=== PATIENT | female | born 1930 | race Caucasian/White ===

== ENCOUNTER 2018-04-25 19:48 | Inpatient (IN) ==
[2018-04-25] MEDS ORDERED: SODIUM CHLORIDE 0.9% 500 ML IV STA (20:19)
[2018-04-25] MEDS ORDERED: ONDANSETRON 4 MG/2 ML VIAL IV STA (20:19)
[2018-04-25] MEDS ORDERED: MORPHINE 4 MG/1 ML VIAL IV STA (20:19)
[2018-04-25 20:32] LABS: Basophils % 0.2 % (0.0-0.8); Eosinophils % 0.2 % (0.00-10.9); Hematocrit 40.3 VOL% (35.7-47.0); Immature Granulocytes % 0.6 %; Immature Granulocytes Absolute 0.08 #; Lymphocytes # 1.1 10*3/uL (1.4-4.0); Lymphocytes % 8.8 % (21.3-54.2); Mean Corpuscular HGB Conc 32.3 GM/DL (32-36); Mean Corpuscular Hemoglobin 30 PG (27-34); Mean Corpuscular Volume 92.6 FL (87-102); Mean Platelet Volume 11.1 FL (9.6-12.0); Monocytes # 0.7 10*3/uL (0.11-0.8); Monocytes % 5.4 % (1.7-12.7); Neutrophils # 10.7 10*3/uL (1.4-7.4); Neutrophils % 84.8 % (38.7-73.9); Platelet Count 155 T/CUMM (130-400); Red Blood Count 4.35 MC/CUMM (3.8-5.5); Red Cell Distribution Width 12.3 % (9.3-17.3); White Blood Count 12.6 T/CUMM (4-12)
[2018-04-25 20:51] LABS: Alanine Aminotransferase 9 U/L (13-56); Albumin 3.6 G/DL (3.4-5.0); Alkaline Phosphatase 89 U/L (45-117); Aspartate Amino Transferase 18 U/L (0-37); Bilirubin,Total < 0.39 MG/DL (0.2-1.0); Blood Urea Nitrogen 20 MG/DL (7-18); Calcium 9.2 MG/DL (8.5-10.1); Glucose 153 MG/DL (74-106); Osmolality,Calculated 286.3 MOS/KG (273-304); Potassium 3.8 MMOL/L (3.5-5.1); Sodium 141 MMOL/L (136-145); Total Protein 7.1 G/DL (6.4-8.3)
[2018-04-25 20:56] LABS: PT Patient Result 10.5 SECS
[2018-04-25 21:24] LABS: Apearance,Urine Slightly Hazy (Clear); Bacteria,Urine Many /HPF (Few); Bilirubin,Urine Negative (Negative); Blood, Urine Moderate mg/dL (Negative); Glucose,Urine (UA) Negative (Negative); Hyaline Casts,Urine 1 /LPF (0-3); Ketones,Urine 5 mg/dL (Negative); Mucus,Urine Occasional /LPF (Occasional); Nitrite,Urine Positive (Negative); Protein,Urine Negative; RBC,Urine 4 /HPF (0-4); Urine Color Yellow (Yellow); Urine Specific Gravity 1.016 (1.001-1.035); Urine Urobilinogen < 2.0 EU/DL (0.2-1.0); WBC,Urine 92 /HPF (0-6)
[2018-04-25] MEDS ORDERED: LEVOFLOXACIN INJ 500 MG in PREMIX 1 EACH IV STA (21:25)
[2018-04-25] MEDS ORDERED: hydrALAZINE 20 MG/1 ML VIAL ONE (23:59)
[2018-04-26] MEDS ORDERED: hydrALAZINE 20 MG/1 ML VIAL IV ONE (00:04)
[2018-04-26] MEDS ORDERED: hydrALAZINE 20 MG/1 ML VIAL IV PRN (00:54)
[2018-04-26] MEDS ORDERED: MORPHINE 4 MG/1 ML VIAL IV PRN (00:54)
[2018-04-26] MEDS ORDERED: ONDANSETRON 4 MG/2 ML VIAL IV PRN (00:54)
[2018-04-26] MEDS: SODIUM CHLORIDE 0.9% 1,000 ML IV SCH ×3 (01:20→21:42)
[2018-04-26 01:31] LABS: Basophils % 0.2 % (0.0-0.8); Eosinophils % 0.1 % (0.00-10.9); Hemoglobin 12.8 GM/DL (12.0-16.0); Immature Granulocytes % 0.5 %; Immature Granulocytes Absolute 0.08 #; Lymphocytes # 1.3 10*3/uL (1.4-4.0); Lymphocytes % 8.4 % (21.3-54.2); Mean Corpuscular HGB Conc 32.8 GM/DL (32-36); Mean Corpuscular Hemoglobin 30 PG (27-34); Mean Corpuscular Volume 91.5 FL (87-102); Mean Platelet Volume 11.1 FL (9.6-12.0); Monocytes # 0.7 10*3/uL (0.11-0.8); Monocytes % 4.3 % (1.7-12.7); Neutrophils # 13.8 10*3/uL (1.4-7.4); Neutrophils % 86.5 % (38.7-73.9); Platelet Count 151 T/CUMM (130-400); Red Blood Count 4.26 MC/CUMM (3.8-5.5); Red Cell Distribution Width 12.4 % (9.3-17.3); White Blood Count 15.9 T/CUMM (4-12)
[2018-04-26 01:38] LABS: PT Patient Result 10.7 SECS
[2018-04-26 02:01] LABS: Albumin 3.4 G/DL (3.4-5.0); Bilirubin,Total 0.5 MG/DL (0.2-1.0); Calcium 8.6 MG/DL (8.5-10.1); Osmolality,Calculated 284.7 MOS/KG (273-304); Total Protein 6.8 G/DL (6.4-8.3)
[2018-04-26] MEDS ORDERED: VANCOMYCIN INJ 1,000 MG in SODIUM CHLORIDE 0.9% 250 ML IV ONE (06:38)
[2018-04-26] MEDS ORDERED: DEXTROSE 50% 25 GM/50 ML VIAL IV PRN (06:39)
[2018-04-26] MEDS ORDERED: GLUCAGON 1 MG VIAL IM PRN (06:39)
[2018-04-26] MEDS ORDERED: INSULIN REGULAR 100 UNIT/ML SUBCUT SCH (07:30)
[2018-04-26] MEDS: INSULIN LISPRO 100 UNIT/ML SUBCUT SCH ×4 (08:17→21:46)
[2018-04-26] MEDS ORDERED: ENOXAPARIN 40 MG/0.4 ML SYRINGE SUBCUT SCH (09:00)
[2018-04-26] MEDS ORDERED: ceFAZolin 1,000 MG in SYRINGE 1 EACH IV ONE (10:30)
[2018-04-26] MEDS ORDERED: TRANEXAMIC ACID 1,000 MG/10 ML VIAL ONE (11:19)
[2018-04-26] MEDS ORDERED: BACITRACIN OINT 0.9 GM PACK TOP ONE (11:19)
[2018-04-26] MEDS ORDERED: PROPOFOL 200 MG/20 ML VIAL IV ONE (13:58)
[2018-04-26] MEDS ORDERED: SEVOFLURANE 1 UNIT/15 MINUTE INH ONE (13:58)
[2018-04-26] MEDS ORDERED: fentaNYL 100 MCG/2 ML VIAL ONE (13:58)
[2018-04-26] MEDS ORDERED: KETAMINE 500 MG/10 ML VIAL ONE (13:59)
[2018-04-26] MEDS ORDERED: ONDANSETRON 4 MG/2 ML VIAL ONE (13:59)
[2018-04-26] MEDS ORDERED: ROCURONIUM 100 MG/10 ML VIAL IV ONE (13:59)
[2018-04-26] MEDS ORDERED: PHENYLEPHRINE 1 MG/10 ML SYRINGE IV ONE (13:59)
[2018-04-26] MEDS ORDERED: GLYCOPYRROLATE 0.4 MG/2 ML VIAL ONE (13:59)
[2018-04-26] MEDS ORDERED: ETOMIDATE 40 MG/20 ML VIAL IV ONE (13:59)
[2018-04-26] MEDS ORDERED: NEOSTIGMINE 10 MG/10 ML VIAL ONE (13:59)
[2018-04-26] MEDS ORDERED: KETOROLAC 15 MG/1 ML VIAL ONE (14:14)
[2018-04-26] MEDS: KETOROLAC 15 MG/1 ML VIAL IV SCH ×2 (14:15→21:44)
[2018-04-26] MEDS: QUEtiapine 25 MG TABLET PO SCH ×2 (16:07→21:43)
[2018-04-26] MEDS: CARBIDOPA/LEVODOPA 25-100 MG TABLET PO SCH ×2 (16:07→21:44)
[2018-04-26] MEDS: ACETAMINOPHEN 500 MG TABLET PO SCH (18:21)
[2018-04-26] MEDS: DOCUSATE SODIUM 100 MG CAPSULE PO SCH (21:42)
[2018-04-26] MEDS: GABAPENTIN 100 MG CAPSULE PO SCH (21:43)
[2018-04-26] MEDS: TEMAZEPAM 7.5 MG CAPSULE PO SCH (21:43)
[2018-04-26] MEDS: MEMANTINE 10 MG TABLET PO SCH (21:43)
[2018-04-26] MEDS: DONEPEZIL 10 MG TABLET PO SCH (21:43)
[2018-04-27] MEDS: ACETAMINOPHEN 500 MG TABLET PO SCH ×3 (00:46→12:55)
[2018-04-27] MEDS: KETOROLAC 15 MG/1 ML VIAL IV SCH (03:29)
[2018-04-27 04:50] LABS: Basophils # 0.1 10*3/uL (0.0-0.2); Basophils % 0.4 % (0.0-0.8); Eosinophils # 0.2 10*3/uL (0.0-0.87); Eosinophils % 1.6 % (0.00-10.9); Hematocrit 33.9 VOL% (35.7-47.0); Immature Granulocytes % 0.6 %; Immature Granulocytes Absolute 0.07 #; Lymphocytes % 9.3 % (21.3-54.2); Mean Corpuscular HGB Conc 32.4 GM/DL (32-36); Mean Corpuscular Hemoglobin 31 PG (27-34); Mean Corpuscular Volume 94.4 FL (87-102); Mean Platelet Volume 11.6 FL (9.6-12.0); Monocytes # 0.9 10*3/uL (0.11-0.8); Monocytes % 7.6 % (1.7-12.7); Neutrophils % 80.5 % (38.7-73.9); Platelet Count 120 T/CUMM (130-400); Red Blood Count 3.59 MC/CUMM (3.8-5.5); Red Cell Distribution Width 12.8 % (9.3-17.3); White Blood Count 11.1 T/CUMM (4-12)
[2018-04-27 05:08] LABS: Calcium 7.5 MG/DL (8.5-10.1); Osmolality,Calculated 283.4 MOS/KG (273-304); Potassium 4.1 MMOL/L (3.5-5.1)
[2018-04-27] MEDS: LEVOTHYROXINE 75 MCG TABLET PO SCH (06:55)
[2018-04-27] MEDS: INSULIN LISPRO 100 UNIT/ML SUBCUT SCH ×4 (07:50→21:30)
[2018-04-27] MEDS: INSULIN NPH/REGULAR 70/30 100 UNIT/ML SUBCUT SCH (07:51)
[2018-04-27] MEDS: QUEtiapine 25 MG TABLET PO SCH ×3 (08:50→21:23)
[2018-04-27] MEDS: MEMANTINE 10 MG TABLET PO SCH ×2 (08:53→21:23)
[2018-04-27] MEDS: DOCUSATE SODIUM 100 MG CAPSULE PO SCH ×2 (08:53→21:23)
[2018-04-27] MEDS: CARBIDOPA/LEVODOPA 25-100 MG TABLET PO SCH ×3 (08:53→21:23)
[2018-04-27] MEDS: glipiZIDE 5 MG TABLET PO SCH (08:53)
[2018-04-27] MEDS: DONEPEZIL 10 MG TABLET PO SCH ×2 (08:54→21:23)
[2018-04-27] MEDS: FONDAPARINUX 2.5 MG/0.5 ML SYRINGE SUBCUT SCH (08:56)
[2018-04-27] MEDS ORDERED: LISINOPRIL 10 MG TABLET PO SCH (09:00)
[2018-04-27] MEDS: LORATADINE 10 MG TABLET PO SCH (09:43)
[2018-04-27] MEDS: GABAPENTIN 100 MG CAPSULE PO SCH (21:23)
[2018-04-27] MEDS: TEMAZEPAM 7.5 MG CAPSULE PO SCH (21:23)
[2018-04-27] MEDS: SODIUM CHLORIDE 0.9% 1,000 ML IV SCH (21:46)
[2018-04-28 05:19] LABS: Basophils % 0.3 % (0.0-0.8); Eosinophils # 0.2 10*3/uL (0.0-0.87); Eosinophils % 1.8 % (0.00-10.9); Hemoglobin 10.2 GM/DL (12.0-16.0); Immature Granulocytes % 0.3 %; Immature Granulocytes Absolute 0.03 #; Lymphocytes # 1.3 10*3/uL (1.4-4.0); Lymphocytes % 11.9 % (21.3-54.2); Mean Corpuscular HGB Conc 30.9 GM/DL (32-36); Mean Corpuscular Hemoglobin 30 PG (27-34); Mean Corpuscular Volume 95.4 FL (87-102); Mean Platelet Volume 11.4 FL (9.6-12.0); Monocytes # 0.7 10*3/uL (0.11-0.8); Monocytes % 6.2 % (1.7-12.7); Neutrophils # 8.9 10*3/uL (1.4-7.4); Neutrophils % 79.5 % (38.7-73.9); Platelet Count 102 T/CUMM (130-400); Red Blood Count 3.46 MC/CUMM (3.8-5.5); Red Cell Distribution Width 12.7 % (9.3-17.3); White Blood Count 11.2 T/CUMM (4-12)
[2018-04-28 05:48] LABS: Calcium 7.8 MG/DL (8.5-10.1)
[2018-04-28] MEDS: LEVOTHYROXINE 75 MCG TABLET PO SCH (06:10)
[2018-04-28] MEDS: INSULIN NPH/REGULAR 70/30 100 UNIT/ML SUBCUT SCH (07:49)
[2018-04-28] MEDS: INSULIN LISPRO 100 UNIT/ML SUBCUT SCH ×4 (07:49→20:48)
[2018-04-28] MEDS: FONDAPARINUX 2.5 MG/0.5 ML SYRINGE SUBCUT SCH (09:22)
[2018-04-28] MEDS: glipiZIDE 5 MG TABLET PO SCH (09:22)
[2018-04-28] MEDS: CARBIDOPA/LEVODOPA 25-100 MG TABLET PO SCH ×3 (09:23→20:46)
[2018-04-28] MEDS: DOCUSATE SODIUM 100 MG CAPSULE PO SCH ×2 (09:23→20:46)
[2018-04-28] MEDS: MEMANTINE 10 MG TABLET PO SCH ×2 (09:23→20:47)
[2018-04-28] MEDS: DONEPEZIL 10 MG TABLET PO SCH ×2 (09:23→20:47)
[2018-04-28] MEDS: QUEtiapine 25 MG TABLET PO SCH ×3 (09:23→20:46)
[2018-04-28] MEDS: LORATADINE 10 MG TABLET PO SCH (09:24)
[2018-04-28] MEDS: hydrALAZINE 10 MG TABLET PO SCH ×2 (11:22→20:46)
[2018-04-28] MEDS: GABAPENTIN 100 MG CAPSULE PO SCH (20:46)
[2018-04-28] MEDS: TEMAZEPAM 7.5 MG CAPSULE PO SCH (20:47)
[2018-04-28] MEDS: cefTRIAXone 1,000 MG in SYRINGE 1 EACH IV SCH (22:13)
[2018-04-29 06:02] LABS: Basophils % 0.2 % (0.0-0.8); Eosinophils # 0.2 10*3/uL (0.0-0.87); Eosinophils % 2.3 % (0.00-10.9); Hematocrit 32.1 VOL% (35.7-47.0); Hemoglobin 10.3 GM/DL (12.0-16.0); Immature Granulocytes % 0.5 %; Immature Granulocytes Absolute 0.04 #; Lymphocytes # 1.5 10*3/uL (1.4-4.0); Mean Corpuscular HGB Conc 32.1 GM/DL (32-36); Mean Corpuscular Hemoglobin 30 PG (27-34); Mean Corpuscular Volume 94.1 FL (87-102); Mean Platelet Volume 11.9 FL (9.6-12.0); Monocytes # 0.7 10*3/uL (0.11-0.8); Monocytes % 7.8 % (1.7-12.7); Neutrophils # 6.4 10*3/uL (1.4-7.4); Neutrophils % 72.2 % (38.7-73.9); Platelet Count 117 T/CUMM (130-400); Red Blood Count 3.41 MC/CUMM (3.8-5.5); Red Cell Distribution Width 12.6 % (9.3-17.3); White Blood Count 8.8 T/CUMM (4-12)
[2018-04-29 06:25] LABS: Alanine Aminotransferase < 6 U/L (13-56); Albumin 2.3 G/DL (3.4-5.0); Alkaline Phosphatase 89 U/L (45-117); Aspartate Amino Transferase 18 U/L (0-37); Blood Urea Nitrogen 18 MG/DL (7-18); Calcium 8.2 MG/DL (8.5-10.1); Glucose 110 MG/DL (74-106); Osmolality,Calculated 275.8 MOS/KG (273-304); Potassium 3.9 MMOL/L (3.5-5.1); Sodium 137 MMOL/L (136-145); Total Protein 5.7 G/DL (6.4-8.3)
[2018-04-29] MEDS: LEVOTHYROXINE 75 MCG TABLET PO SCH (06:47)
[2018-04-29] MEDS: INSULIN NPH/REGULAR 70/30 100 UNIT/ML SUBCUT SCH (08:04)
[2018-04-29] MEDS: INSULIN LISPRO 100 UNIT/ML SUBCUT SCH ×4 (08:04→21:17)
[2018-04-29] MEDS: FONDAPARINUX 2.5 MG/0.5 ML SYRINGE SUBCUT SCH (08:05)
[2018-04-29] MEDS: hydrALAZINE 10 MG TABLET PO SCH ×2 (08:44→21:19)
[2018-04-29] MEDS: MEMANTINE 10 MG TABLET PO SCH ×2 (08:44→21:19)
[2018-04-29] MEDS: QUEtiapine 25 MG TABLET PO SCH ×3 (08:44→21:19)
[2018-04-29] MEDS: glipiZIDE 5 MG TABLET PO SCH (08:44)
[2018-04-29] MEDS: LORATADINE 10 MG TABLET PO SCH (08:44)
[2018-04-29] MEDS: DONEPEZIL 10 MG TABLET PO SCH ×2 (08:44→21:19)
[2018-04-29] MEDS: DOCUSATE SODIUM 100 MG CAPSULE PO SCH ×2 (08:44→21:20)
[2018-04-29] MEDS: CARBIDOPA/LEVODOPA 25-100 MG TABLET PO SCH ×3 (08:44→21:20)
[2018-04-29] MEDS: cefTRIAXone 1,000 MG in SYRINGE 1 EACH IV SCH (21:18)
[2018-04-29] MEDS: GABAPENTIN 100 MG CAPSULE PO SCH (21:20)
[2018-04-29] MEDS: MAGNESIUM HYDROXIDE SUSP 30 ML UDCUP PO PRN (21:22)
[2018-04-29] MEDS: TEMAZEPAM 7.5 MG CAPSULE PO SCH (22:09)
[2018-04-30 05:57] LABS: Alanine Aminotransferase < 9 U/L (13-56); Albumin 2.2 G/DL (3.4-5.0); Alkaline Phosphatase 84 U/L (45-117); Aspartate Amino Transferase 12 U/L (0-37); Blood Urea Nitrogen 20 MG/DL (7-18); Calcium 8.4 MG/DL (8.5-10.1); Glucose 161 MG/DL (74-106); Osmolality,Calculated 284.4 MOS/KG (273-304); Potassium 4.2 MMOL/L (3.5-5.1); Sodium 140 MMOL/L (136-145); Total Protein 5.6 G/DL (6.4-8.3)
[2018-04-30] MEDS: LEVOTHYROXINE 75 MCG TABLET PO SCH (06:48)
[2018-04-30] MEDS: LORATADINE 10 MG TABLET PO SCH (08:41)
[2018-04-30] MEDS: DONEPEZIL 10 MG TABLET PO SCH ×2 (08:41→21:32)
[2018-04-30] MEDS: QUEtiapine 25 MG TABLET PO SCH ×3 (08:41→21:33)
[2018-04-30] MEDS: glipiZIDE 5 MG TABLET PO SCH (08:43)
[2018-04-30] MEDS: CARBIDOPA/LEVODOPA 25-100 MG TABLET PO SCH ×3 (08:43→21:33)
[2018-04-30] MEDS: MEMANTINE 10 MG TABLET PO SCH ×2 (08:43→21:33)
[2018-04-30] MEDS: hydrALAZINE 10 MG TABLET PO SCH ×2 (08:43→21:33)
[2018-04-30] MEDS: FONDAPARINUX 2.5 MG/0.5 ML SYRINGE SUBCUT SCH (08:44)
[2018-04-30] MEDS: INSULIN NPH/REGULAR 70/30 100 UNIT/ML SUBCUT SCH (08:45)
[2018-04-30] MEDS: INSULIN LISPRO 100 UNIT/ML SUBCUT SCH ×4 (08:45→21:34)
[2018-04-30] MEDS: MAGNESIUM HYDROXIDE SUSP 30 ML UDCUP PO PRN ×2 (11:53→21:32)
[2018-04-30] MEDS: DOCUSATE SODIUM 100 MG CAPSULE PO SCH ×2 (11:53→21:32)
[2018-04-30] MEDS: cefTRIAXone 1,000 MG in SYRINGE 1 EACH IV SCH (21:29)
[2018-04-30] MEDS: GABAPENTIN 100 MG CAPSULE PO SCH (21:33)
[2018-04-30] MEDS: TEMAZEPAM 7.5 MG CAPSULE PO SCH (21:44)
[2018-05-01] MEDS: LEVOTHYROXINE 75 MCG TABLET PO SCH ×2 (06:35→08:16)
[2018-05-01] MEDS: CARBIDOPA/LEVODOPA 25-100 MG TABLET PO SCH ×3 (08:15→21:10)
[2018-05-01] MEDS: hydrALAZINE 10 MG TABLET PO SCH ×2 (08:15→21:09)
[2018-05-01] MEDS: DOCUSATE SODIUM 100 MG CAPSULE PO SCH ×2 (08:15→21:09)
[2018-05-01] MEDS: QUEtiapine 25 MG TABLET PO SCH ×3 (08:15→21:09)
[2018-05-01] MEDS: glipiZIDE 5 MG TABLET PO SCH (08:16)
[2018-05-01] MEDS: FONDAPARINUX 2.5 MG/0.5 ML SYRINGE SUBCUT SCH (08:16)
[2018-05-01] MEDS: MEMANTINE 10 MG TABLET PO SCH ×2 (08:16→21:10)
[2018-05-01] MEDS: INSULIN NPH/REGULAR 70/30 100 UNIT/ML SUBCUT SCH (08:18)
[2018-05-01] MEDS: INSULIN LISPRO 100 UNIT/ML SUBCUT SCH ×4 (08:19→21:21)
[2018-05-01] MEDS: DONEPEZIL 10 MG TABLET PO SCH ×2 (08:33→21:09)
[2018-05-01] MEDS: LORATADINE 10 MG TABLET PO SCH (08:33)
[2018-05-01] MEDS ORDERED: TEMAZEPAM 7.5 MG CAPSULE PO PRN (18:41)
[2018-05-01] MEDS: GABAPENTIN 100 MG CAPSULE PO SCH (21:11)
[2018-05-01] MEDS: cefTRIAXone 1,000 MG in SYRINGE 1 EACH IV SCH (21:22)
[2018-05-01] MEDS ORDERED: hydrALAZINE 20 MG/1 ML VIAL IV ONE (22:30)
[2018-05-02 05:58] LABS: Basophils % 0.3 % (0.0-0.8); Eosinophils # 0.1 10*3/uL (0.0-0.87); Eosinophils % 1.3 % (0.00-10.9); Hematocrit 32.2 VOL% (35.7-47.0); Hemoglobin 10.6 GM/DL (12.0-16.0); Immature Granulocytes % 1.5 %; Immature Granulocytes Absolute 0.15 #; Lymphocytes # 1.9 10*3/uL (1.4-4.0); Lymphocytes % 19.1 % (21.3-54.2); Mean Corpuscular HGB Conc 32.9 GM/DL (32-36); Mean Corpuscular Hemoglobin 30 PG (27-34); Mean Corpuscular Volume 91.5 FL (87-102); Mean Platelet Volume 10.6 FL (9.6-12.0); Monocytes # 1.1 10*3/uL (0.11-0.8); Monocytes % 10.9 % (1.7-12.7); Neutrophils # 6.5 10*3/uL (1.4-7.4); Neutrophils % 66.9 % (38.7-73.9); Platelet Count 234 T/CUMM (130-400); Red Blood Count 3.52 MC/CUMM (3.8-5.5); Red Cell Distribution Width 12.2 % (9.3-17.3); White Blood Count 9.7 T/CUMM (4-12)
[2018-05-02] MEDS: LEVOTHYROXINE 75 MCG TABLET PO SCH (06:04)
[2018-05-02 06:18] LABS: Calcium 8.9 MG/DL (8.5-10.1); Potassium 4.3 MMOL/L (3.5-5.1)
[2018-05-02] MEDS ORDERED: INSULIN NPH/REGULAR 70/30 100 UNIT/ML SUBCUT SCH (07:30)
[2018-05-02] MEDS: INSULIN LISPRO 100 UNIT/ML SUBCUT SCH ×4 (08:27→20:23)
[2018-05-02] MEDS: CARBIDOPA/LEVODOPA 25-100 MG TABLET PO SCH ×3 (09:24→20:24)
[2018-05-02] MEDS: DOCUSATE SODIUM 100 MG CAPSULE PO SCH ×2 (09:24→20:24)
[2018-05-02] MEDS: LORATADINE 10 MG TABLET PO SCH (09:24)
[2018-05-02] MEDS: DONEPEZIL 10 MG TABLET PO SCH ×2 (09:24→20:24)
[2018-05-02] MEDS: glipiZIDE 5 MG TABLET PO SCH ×2 (09:24→17:13)
[2018-05-02] MEDS: hydrALAZINE 25 MG TABLET PO SCH ×3 (09:24→20:24)
[2018-05-02] MEDS: QUEtiapine 25 MG TABLET PO SCH ×4 (09:25→20:24)
[2018-05-02] MEDS: FONDAPARINUX 2.5 MG/0.5 ML SYRINGE SUBCUT SCH (09:25)
[2018-05-02] MEDS: MEMANTINE 10 MG TABLET PO SCH ×2 (09:25→20:24)
[2018-05-02] MEDS: GABAPENTIN 100 MG CAPSULE PO SCH (20:24)
[2018-05-02] MEDS: cefTRIAXone 1,000 MG in SYRINGE 1 EACH IV SCH (22:22)
[2018-05-03] MEDS: LEVOTHYROXINE 75 MCG TABLET PO SCH (06:28)
[2018-05-03] MEDS ORDERED: INSULIN NPH/REGULAR 70/30 100 UNIT/ML SUBCUT SCH (07:30)
[2018-05-03] MEDS: glipiZIDE 5 MG TABLET PO SCH (08:04)
[2018-05-03] MEDS: INSULIN LISPRO 100 UNIT/ML SUBCUT SCH (08:04)
[2018-05-03 08:17] VITALS: BP 161/72
[2018-05-03] MEDS: FONDAPARINUX 2.5 MG/0.5 ML SYRINGE SUBCUT SCH (09:15)
[2018-05-03] MEDS: LORATADINE 10 MG TABLET PO SCH (09:16)
[2018-05-03] MEDS: MEMANTINE 10 MG TABLET PO SCH (09:16)
[2018-05-03] MEDS: hydrALAZINE 25 MG TABLET PO SCH (09:16)
[2018-05-03] MEDS: QUEtiapine 25 MG TABLET PO SCH (09:16)
[2018-05-03] MEDS: DOCUSATE SODIUM 100 MG CAPSULE PO SCH (09:16)
[2018-05-03] MEDS: CARBIDOPA/LEVODOPA 25-100 MG TABLET PO SCH (09:17)
[2018-05-03] MEDS: DONEPEZIL 10 MG TABLET PO SCH (09:17)
== END 2018-05-03 10:26 | DRG 470 ==
LOC: EDBD → EDUNIT# → N.ED 19:48 → N.EDINP 22:47 → N.3E 23:59
PROVIDERS: ADMIT Internal Medicine; ATTEND Internal Medicine